=== PATIENT | male | born 1985 | race Hispanic/Latino ===

== ENCOUNTER 2019-06-13 19:22 | Emergency (ER) | payer OTHER ==
[2019-06-13] MEDS ORDERED: SODIUM CHLORIDE 0.9% 1000 ML IV SOLN IV ONE (19:51)
--- NOTE | 2019-06-13 19:56 | Event Note ---
ED Screening Note Date of service: 06/13/19 Time: 19:51 ED Screening Note: 34 y/o male comes in for cough , chills, fever. bodyache, decrease appetite. No recent travel, No contact with covid-19. Was seen by his PCP. Has been on Tamiflu recently. This initial assessment/diagnostic orders/clinical plan/treatment(s) is/are subject to change based on patients health status, clinical progression and re- assessment by fellow clinical providers in the ED. Further treatment and workup at subsequent clinical providers discretion. Patient/guardian urged not to elope from the ED as their condition may be serious if not clinically assessed and managed. Initial orders include:
[2019-06-13 20:11] LABS: Basophils % (Auto) 0.4 % (0.0-1.8); Hematocrit 39.8 % (35.5-45.6); Hemoglobin 13.8 gm/dl (11.8-15.2); Lymphocytes # (Auto) 1.5 K/mm3 (1.2-5.4); Lymphocytes % (Auto) 28.6 % (13.4-35.0); Mean Corpuscular HGB Conc 35 % (32-34); Mean Corpuscular Volume 76 fl (84-94); Monocytes # (Auto) 0.6 K/mm3 (0.0-0.8); Monocytes % (Auto) 12.5 % (0.0-7.3); Platelet Count 304 K/mm3 (140-440); Red Blood Count 5.24 M/mm3 (3.65-5.03); Red Cell Distribution Width 15.7 % (13.2-15.2)
[2019-06-13 20:35] LABS: Alanine Aminotransferase 70 units/L (7-56); Blood Urea Nitrogen 14 mg/dL (9-20)
[2019-06-13 20:48] LABS: Albumin 3.9 g/dL (3.9-5); BUN/Creatinine Ratio 16; Calcium 8.7 mg/dL (8.4-10.2); Hemolysis Index 91
--- NOTE | 2019-06-13 22:08 | XRay Report ---
CHEST 2 VIEWS INDICATION / CLINICAL INFORMATION: cough fever. COMPARISON: None available. FINDINGS: SUPPORT DEVICES: None. HEART / MEDIASTINUM: No significant abnormality. LUNGS / PLEURA: There is minimal patchy parenchymal opacity in the lower lung zones the upper lung zo emilia are clear. No pneumothorax is seen..No pneumothorax. ADDITIONAL FINDINGS: No significant additional findings. IMPRESSION: 1. There is mild patchy parenchymal opacity in the lower lung zones. Signer Name: Ihsan Tijerina MD Signed: 06/13/2019 10:04 PM Workstation Name: [id number]
[2019-06-13] MEDS ORDERED: ACETAMINOPHEN 325 MG TAB PO ONE (22:39)
[2019-06-13] MEDS ORDERED: SODIUM CHLORIDE 0.9% 1000 ML 4,000 ML ONE (22:56)
[2019-06-13] MEDS ORDERED: BENZONATATE 100 MG CAP PO ONE (23:43)
--- NOTE | 2019-06-13 23:49 | Emergency Department Report ---
ED Shortness of Breath HPI - General Chief Complaint: Upper Respiratory Infection Stated Complaint: FEVER, COUGH, AND CHILLS Time Seen by Provider: 06/13/19 19:48 Source: patient Mode of arrival: Ambulatory Limitations: No Limitations - History of Present Illness Initial Comments: 34-year-old -[place] male patient without significant past medical history presents with complaints of cough, shortness of breath, and intermittent fever x10 days. Patient states he was seen by his primary care doctor over a week ago and placed on Tamiflu for possible flu. He states his symptoms are worsening. He denies any travel outside the [place]/contact with individuals who have traveled outside the [place], or contact with individuals with known covid19. He also denies any hemoptysis or history of smoking. Shortness of breath worsens with ambulation and talking. -: Gradual Improves With: rest Worsens With: movement - Related Data Previous Rx's Medication Instructions Recorded Last Taken Type Benzonatate 200 mg PO TID PRN #30 capsule 06/14/19 Unknown Rx Promethazine [Phenergan] 25 mg PO Q6HR PRN #12 tab 06/14/19 Unknown Rx levoFLOXacin [Levaquin] 750 mg PO QDAY #5 tablet 06/14/19 Unknown Rx Allergies Allergy/AdvReac Type Severity Reaction Status Date / Time No Known Allergies Allergy Verified 06/13/19 19:40 ED Review of Systems ROS: Stated complaint: FEVER, COUGH, AND CHILLS Other details as noted in HPI Constitutional: chills, diaphoresis, fever, malaise, weakness ENT: denies: throat pain Respiratory: cough, shortness of breath Cardiovascular: chest pain (With coughing only) Gastrointestinal: nausea, vomiting, diarrhea. denies: abdominal pain Skin: denies: rash, lesions Neurological: denies: headache Hematological/Lymphatic: denies: swollen glands ED Past Medical Hx - Past Medical History Previous Medical History?: Yes Hx Asthma: Yes - Surgical History Past Surgical History?: No - Social History Smoking Status: Never Smoker Substance Use Type: None - Medications Home Medications: Home Medications Medication Instructions Recorded Confirmed Last Taken Type Benzonatate 200 mg PO TID PRN #30 capsule 06/14/19 Unknown Rx Promethazine [Phenergan] 25 mg PO Q6HR PRN #12 tab 06/14/19 Unknown Rx levoFLOXacin [Levaquin] 750 mg PO QDAY #5 tablet 06/14/19 Unknown Rx ED Physical Exam - General Limitations: No Limitations General appearance: alert, in no apparent distress - Head Head exam: Present: atraumatic, normocephalic - Eye Eye exam: Present: normal appearance - ENT ENT exam: Present: mucous membranes moist - Neck Neck exam: Present: normal inspection, full ROM. Absent: lymphadenopathy - Respiratory Respiratory exam: Present: rales, rhonchi, other (Patient is short of breath with speaking). Absent: wheezes, chest wall tenderness - Cardiovascular Cardiovascular Exam: Present: normal rhythm, tachycardia - GI/Abdominal GI/Abdominal exam: Present: soft, normal bowel sounds. Absent: distended, tenderness, guarding, rebound, rigid - Extremities Exam Extremities exam: Present: normal inspection - Back Exam Back exam: Present: normal inspection - Neurological Exam Neurological exam: Present: alert, oriented X3 - Psychiatric Psychiatric exam: Present: normal affect, normal mood - Skin Skin exam: Present: warm, dry, intact, normal color. Absent: rash, cyanosis, diaphoretic ED Course Vital Signs 06/13/19 06/13/19 06/14/19 19:43 22:49 00:08 Temperature 101.5 F H 97.5 F L Pulse Rate 125 H 104 H 100 H Respiratory 18 18 31 H Rate Blood Pressure 124/81 Blood Pressure 121/73 [Left] O2 Sat by Pulse 94 97 95 Oximetry 06/14/19 06/14/19 06/14/19 00:16 00:30 00:46 Temperature Pulse Rate 99 H 99 H 101 H Respiratory 24 27 H 47 H Rate Blood Pressure 145/76 145/76 145/76 Blood Pressure [Left] O2 Sat by Pulse 95 94 96 Oximetry 06/14/19 06/14/19 06/14/19 01:00 01:16 01:30 Temperature Pulse Rate 102 H 100 H 99 H Respiratory 32 H 39 H 36 H Rate Blood Pressure 155/90 134/79 158/80 Blood Pressure [Left] O2 Sat by Pulse 98 96 95 Oximetry 06/14/19 06/14/19 06/14/19 01:46 02:00 02:16 Temperature Pulse Rate 100 H 97 H 96 H Respiratory 38 H 36 H 38 H Rate Blood Pressure 158/80 125/62 125/62 Blood Pressure [Left] O2 Sat by Pulse 93 94 Oximetry 06/14/19 06/14/19 06/14/19 02:30 02:46 03:00 Temperature Pulse Rate 96 H 96 H 100 H Respiratory 40 H 13 16 Rate Blood Pressure 121/71 121/71 121/71 Blood Pressure [Left] O2 Sat by Pulse 95 95 94 Oximetry 06/14/19 03:11 Temperature 98.7 F Pulse Rate Respiratory Rate Blood Pressure Blood Pressure [Left] O2 Sat by Pulse Oximetry ED Medical Decision Making - Lab Data Result diagrams: 06/13/19 19:57 06/13/19 19:57 Lab Results 06/13/19 06/13/19 06/13/19 Range/Units 19:57 19:57 19:57 WBC 5.1 (4.5-11.0) K/mm3 RBC 5.24 H (3.65-5.03) M/mm3 Hgb 13.8 (11.8-15.2) gm/dl Hct 39.8 (35.5-45.6) % MCV 76 L (84-94) fl MCH 26 L (28-32) pg MCHC 35 H (32-34) % RDW 15.7 H (13.2-15.2) % Plt Count 304 (140-440) K/mm3 Lymph % (Auto) 28.6 (13.4-35.0) % [place] % (Auto) 12.5 H (0.0-7.3) % Eos % (Auto) 0.0 (0.0-4.3) % Baso % (Auto) 0.4 (0.0-1.8) % Lymph # 1.5 (1.2-5.4) K/mm3 [place] # 0.6 (0.0-0.8) K/mm3 Eos # 0.0 (0.0-0.4) K/mm3 Baso # 0.0 (0.0-0.1) K/mm3 Seg Neutrophils % 58.5 (40.0-70.0) % Seg Neutrophils # 3.0 (1.8-7.7) K/mm3 ABG pH ABG pCO2 ABG pO2 ABG HCO3 ABG O2 Saturation ABG O2 Content ABG Base Excess ABG Hemoglobin ABG Carboxyhemoglobin ABG Methemoglobin Oxyhemoglobin FiO2 Sodium 131 L (137-145) mmol/L Potassium 4.2 (3.6-5.0) mmol/L Chloride 93.9 L (98-107) mmol/L Carbon Dioxide 23 (22-30) mmol/L Anion Gap 18 mmol/L BUN 14 (9-20) mg/dL Creatinine 0.9 (0.8-1.5) mg/dL Estimated GFR > 60 ml/min BUN/Creatinine Ratio 16 % Glucose 117 H (75-100) mg/dL Lactic Acid 1.50 (0.7-2.0) mmol/L Calcium 8.7 (8.4-10.2) mg/dL Total Bilirubin 0.80 (0.1-1.2) mg/dL AST 64 H (5-40) units/L ALT 70 H (7-56) units/L Alkaline Phosphatase 68 (35-129) units/L Total Protein 8.2 (6.3-8.2) g/dL Albumin 3.9 (3.9-5) g/dL Albumin/Globulin Ratio 0.9 % 06/13/19 06/14/19 06/14/19 Range/Units 23:27 01:03 01:26 WBC (4.5-11.0) K/mm3 RBC (3.65-5.03) M/mm3 Hgb (11.8-15.2) gm/dl Hct (35.5-45.6) % MCV (84-94) fl MCH (28-32) pg MCHC (32-34) % RDW (13.2-15.2) % Plt Count (140-440) K/mm3 Lymph % (Auto) (13.4-35.0) % [place] % (Auto) (0.0-7.3) % Eos % (Auto) (0.0-4.3) % Baso % (Auto) (0.0-1.8) % Lymph # (1.2-5.4) K/mm3 [place] # (0.0-0.8) K/mm3 Eos # (0.0-0.4) K/mm3 Baso # (0.0-0.1) K/mm3 Seg Neutrophils % (40.0-70.0) % Seg Neutrophils # (1.8-7.7) K/mm3 ABG pH TNR ABG pCO2 TNR ABG pO2 TNR ABG HCO3 TNR ABG O2 Saturation TNR ABG O2 Content TNR ABG Base Excess TNR ABG Hemoglobin TNR ABG Carboxyhemoglobin TNR ABG Methemoglobin TNR Oxyhemoglobin TNR FiO2 TNR Sodium (137-145) mmol/L Potassium (3.6-5.0) mmol/L Chloride (98-107) mmol/L Carbon Dioxide (22-30) mmol/L Anion Gap mmol/L BUN (9-20) mg/dL Creatinine (0.8-1.5) mg/dL Estimated GFR ml/min BUN/Creatinine Ratio % Glucose (75-100) mg/dL Lactic Acid 2.00 0.90 (0.7-2.0) mmol/L Calcium (8.4-10.2) mg/dL Total Bilirubin (0.1-1.2) mg/dL AST (5-40) units/L ALT (7-56) units/L Alkaline Phosphatase (35-129) units/L Total Protein (6.3-8.2) g/dL Albumin (3.9-5) g/dL Albumin/Globulin Ratio % 03/16/20 Range/Units 02:50 WBC (4.5-11.0) K/mm3 RBC (3.65-5.03) M/mm3 Hgb (11.8-15.2) gm/dl Hct (35.5-45.6) % MCV (84-94) fl MCH (28-32) pg MCHC (32-34) % RDW (13.2-15.2) % Plt Count (140-440) K/mm3 Lymph % (Auto) (13.4-35.0) % [place] % (Auto) (0.0-7.3) % Eos % (Auto) (0.0-4.3) % Baso % (Auto) (0.0-1.8) % Lymph # (1.2-5.4) K/mm3 [place] # (0.0-0.8) K/mm3 Eos # (0.0-0.4) K/mm3 Baso # (0.0-0.1) K/mm3 Seg Neutrophils % (40.0-70.0) % Seg Neutrophils # (1.8-7.7) K/mm3 ABG pH 7.433 ABG pCO2 37.2 ABG pO2 74.0 L ABG HCO3 24.3 ABG O2 Saturation 95.6 ABG O2 Content 15.4 ABG Base Excess 0.3 ABG Hemoglobin 11.6 L ABG Carboxyhemoglobin 1.3 ABG Methemoglobin 0.5 Oxyhemoglobin 93.8 L FiO2 21 Sodium (137-145) mmol/L Potassium (3.6-5.0) mmol/L Chloride (98-107) mmol/L Carbon Dioxide (22-30) mmol/L Anion Gap mmol/L BUN (9-20) mg/dL Creatinine (0.8-1.5) mg/dL Estimated GFR ml/min BUN/Creatinine Ratio % Glucose (75-100) mg/dL Lactic Acid (0.7-2.0) mmol/L Calcium (8.4-10.2) mg/dL Total Bilirubin (0.1-1.2) mg/dL AST (5-40) units/L ALT (7-56) units/L Alkaline Phosphatase (35-129) units/L Total Protein (6.3-8.2) g/dL Albumin (3.9-5) g/dL Albumin/Globulin Ratio % - Radiology Data Radiology results: report reviewed CHEST 2 VIEWS INDICATION / CLINICAL INFORMATION: cough fever. COMPARISON: None available. FINDINGS: SUPPORT DEVICES: None. HEART / MEDIASTINUM: No significant abnormality. LUNGS / PLEURA: There is minimal patchy parenchymal opacity in the lower lung zones the upper lung zones are clear. No pneumothorax is seen..No pneumothorax. ADDITIONAL FINDINGS: No significant additional findings. IMPRESSION: 1. There is mild patchy parenchymal opacity in the lower lung zones. - Medical Decision Making Patient here with complaints of cough, fever, and shortness of breath for the past 10 days. Chest x-ray shows left lower lung pneumonia. White count is normal CBC. Lactic acid is negative x3. Patient heart rate initially elevated in the 120s, now in the 90s after 2 L of normal saline. Patient also given IV Levaquin. Oxygen saturation is remaining around 94 to 95% on room air. ABG is negative for significant abnormalities. Patient states he is feeling much better. He is stable for discharge home and follow-up with his primary care pr ovider in 3 days. Discussed very strict return precautions in detail with patient who verbalizes understanding. Critical Care Time: Yes Critical care time in (mins) excluding proc time.: 35 Critical care attestation.: If time is entered above; I have spent that time in minutes in the direct care of this critically ill patient, excluding procedure time. ED Disposition Clinical Impression: Left lower lobe pneumonia Qualifiers: Pneumonia type: due to unspecified organism Qualified Code(s): J18.9 - Pneumonia, unspecified organism Disposition: - TO HOME OR SELFCARE Is pt being admited?: No Condition: Stable Instructions: Bacterial Pneumonia (ED) Prescriptions: Benzonatate 200 mg PO TID PRN #30 capsule PRN Reason: Cough levoFLOXacin [Levaquin] 750 mg PO QDAY #5 tablet Promethazine [Phenergan] 25 mg PO Q6HR PRN #12 tab PRN Reason: Nausea Referrals: PRIMARY CARE [Primary Care Provider] - 06/17/19
[2019-06-14 02:00] LABS: ABG PCO2 TNR mm Hg; ABG PH TNR pH Units (7.350-7.450)
[2019-06-14 02:01] LABS: ABG Base Excess TNR mmol/L (-2.0-3.0); ABG HCO3 TNR mmol/L (20.0-26.0); ABG Methemoglobin TNR % (0.0-1.5); ABG Oxygen Saturation TNR % (95.0-99.0); ABG PO2 TNR mm Hg (80.0-90.0)
[2019-06-14 03:01] LABS: ABG Base Excess 0.3 mmol/L (-2.0-3.0); ABG HCO3 24.3 mmol/L (20.0-26.0); ABG Methemoglobin 0.5 % (0.0-1.5); ABG Oxygen Saturation 95.6 % (95.0-99.0); ABG PCO2 37.2 mm Hg; ABG PH 7.433 pH Units (7.350-7.450)
[2019-06-14 04:01] VITALS: BP 135/93
== END 2019-06-14 04:10 | disposition home or self-care (01) ==
LOC: ED 19:22
DX: J18.9 Pneumonia, unspecified organism (principal); J45.909 Unspecified asthma, uncomplicated; R11.2 Nausea with vomiting, unspecified
CPT/HCPCS: 36415; 71046; 80053; 82140; 82803; 85025; 87040; 96361; 96365; 99284; J1956; J7030